=== PATIENT | female | born 1980 | race Caucasian/White ===

== ENCOUNTER → 2018-04-16 | Outpatient (CLI) | payer MEDICAID ==
--- NOTE | 2018-04-16 14:28 | MM ---
Reason for exam: screening (asymptomatic). Baseline mammogram. History: Family history of breast cancer in grandmother at age 58. Physical Findings: Nurse did not find any significant physical abnormalities on exam. MG 3D Screening Mammo W/Cad Bilateral CC and MLO view(s) were taken. The breast tissue is heterogeneously dense. This may lower the sensitivity of mammography. No suspicious abnormality. These results were verbally communicated with the patient and result sheet given to the patient on 04/16/18. ASSESSMENT: Negative, BI-RAD 1 RECOMMENDATION: Routine screening mammogram of both breasts in 1 year.
== END | disposition home or self-care (01) ==
LOC: RADMAMWWP 08:09
PROVIDERS: ATTEND Family Medicine
DX: Z12.31 Encounter for screening mammogram for malignant neoplasm of breast (principal)
CPT/HCPCS: 77063; 77067

== ENCOUNTER → 2018-12-31 | Outpatient (CLI) | payer MEDICAID ==
[2018-12-31 10:29] LABS: HCT 40.1 % (34.0-46.0); HGB 12.8 gm/dL (11.4-16.0); MCH 28.6 pg (25.0-35.0); MCV 89.2 fL (80.0-100.0); Mean Platelet Volume 8.1; Platelet Count 559 k/uL (150-450); RDW 13.3 % (11.5-15.5)
[2018-12-31 17:11] LABS: African American GFR (CKD) 132.1 (60.0-200.0); Albumin 4.3 g/dL (3.80-4.90); Albumin/Globulin Ratio 1.87 (1.60-3.17); Anion Gap 7.6 mmol/L (4.00-12.00); BUN/Creat Ratio 28.33 Ratio (12.00-20.00); Calcium 9.4 mg/dL (8.7-10.3); Carbon Dioxide 24.4 mmol/L (21.6-31.8); Globulin 2.3 g/dL (1.6-3.3); LDL Cholesterol,Calculated 211.8 mg/dL (0.0-131.0); Potassium 4.8 mmol/L (3.5-5.5); Total Bilirubin 0.4 mg/dL (0.2-1.2); Total Protein 6.6 g/dL (6.2-8.2); VLDL Calculation 18.2 mg/dL (5.00-40.00)
[2018-12-31 17:17] LABS: T4, Free (Free Thyroxine) 1.2 ng/dL (0.80-1.80)
== END | disposition home or self-care (01) ==
LOC: LABWHC1 09:22
PROVIDERS: ATTEND Physician Assistant Medical
DX: Z00.00 Encounter for general adult medical examination without abnormal findings (principal); L40.9 Psoriasis, unspecified; E06.3 Autoimmune thyroiditis
CPT/HCPCS: 36415; 80053; 80061; 84439; 84443; 85027

== ENCOUNTER → 2019-08-12 | Outpatient (CLI) | payer MEDICAID ==
--- NOTE | 2019-08-12 09:40 | US ---
EXAMINATION TYPE: US kidneys/renal and bladder DATE OF EXAM: 08/12/2019 COMPARISON: NONE CLINICAL HISTORY: R31.9 hematuria. Hematuria hx of kidney stones. EXAM MEASUREMENTS: Right Kidney: 10.4 x 4.1 x 3.9 cm Left Kidney: 10.6 x 4.3 x 3.8 cm Right Kidney: Multiple calcifications noted no shadowing seen. Mild hydronephrosis seen. Left Kidney: Multiple calcifications noted no shadowing seen. Mild hydronephrosis seen. Bladder: Uterocele visualized going into right ureter. Bilateral Jets seen: Yes. No masses are identified. The urinary bladder is anechoic. Ureterocele is seen within the right late ral urinary bladder. Bilateral ureteral jets are seen. IMPRESSION: Mild bilateral hydronephrosis is seen. Right ureterocele is present. Possible punctate bi lateral renal calculi without shadowing versus prominent renal sinus fat. .
== END ==
LOC: RADUSMAIN 08:41
PROVIDERS: ATTEND Family Medicine
DX: N13.30 Unspecified hydronephrosis (principal); N28.89 Other specified disorders of kidney and ureter
CPT/HCPCS: 76770

== ENCOUNTER → 2019-09-28 | Outpatient (CLI) | payer MEDICAID ==
[2019-09-28 09:13] LABS: African American GFR (CKD) >90 (>60 ml/min/1.73 sqM); Blood Urea Nitrogen 14 mg/dL (7-17); Non-African American GFR(CKD) >90 (>60 ml/min/1.73 sqM)
--- NOTE | 2019-09-28 10:23 | XR ---
EXAMINATION TYPE: XR IVP DATE OF EXAM: 09/28/2019 COMPARISON: Abdominal x-ray February 21, 2012. Most recent renal ultrasound August 12, 2019. HISTORY: Microhematuria and hydronephrosis per order. History of kidney stones with blood in urine pe r patient. TECHNIQUE: Following intravenous administration of 100 cc Isovue-370, multiple spot images are obtain ed. 7 spot images saved to PACS. The preliminary film of the abdomen reveals poor visualization but suspected small bilateral renal ca lculi definitely all measuring under 5 mm standard to lower pole level. I would estimate 3-5 such alexia culi on the right and 2-3 separate calculi on the left. Findings correlate with recent renal ultrasou nd. 2 left pelvic phleboliths are thought present. Following intravenous administration of contrast material, sequential films of the abdomen were obtai susy. There is prompt and symmetrical excretion of the contrast by both kidneys which demonstrate nor mal size and configuration. The collecting systems and visualized portions of the ureters reveal asy mmetric mild right-sided hydronephrosis. There is no mass or obstruction visualized. Distal ureters show focal dilatation herniating into bladder symmetric in appearance, classic Cobra head or spring onion sign. Findings consistent with bilateral adult type ureteroceles. There is gradual accumulation of contrast material in the urinary bladder showing no gross abnormality. The post-voiding film paxton ws minimal residual contrast in the collecting systems and urinary bladder. IMPRESSION: Probable nonobstructing bilateral renal calculi. Mild asymmetric right-sided hydronephros is without obstructing ureter stone. IVP demonstrates bilateral adult type ureteroceles.
== END | disposition home or self-care (01) ==
LOC: RADFLMAIN 08:21
PROVIDERS: ATTEND Urology
DX: N13.30 Unspecified hydronephrosis (principal); N28.89 Other specified disorders of kidney and ureter; R31.1 Benign essential microscopic hematuria
CPT/HCPCS: 82565; 84520; 74400; 36415; Q9967

== ENCOUNTER 2020-09-18 09:56 | Day surgery (SDC) | payer MEDICAID ==
[2020-09-12 15:10] VITALS: BMI 24.2
[~2020-09-18 09:56] MED LIST: LACTATED RINGERS 1,000 ML IV SCH; LIDOCAINE 1% (10MG/ML) FOR IV START INTRADERMA PRN
[2020-09-18] MEDS ORDERED: LACTATED RINGERS 1,000 ML IV ONE (10:12)
[2020-09-18 10:37] VITALS: RESP 16; TEMP 98.1
[2020-09-18] MEDS ORDERED: PROPOFOL 10 MG/ML 20 ML VIAL IV ONE (10:45)
[2020-09-18] MEDS ORDERED: LIDOCAINE 1% INJ 10MG/ML (20 ML MDV) ONE (10:45)
--- NOTE | 2020-09-18 10:52 | P.GSHP ---
History of Present Illness H&P Date: 09/18/20 Chief Complaint: Reflux, bloating Patient here today for upper and lower endoscopy. Patient complaints of mild reflux at times. Some bloating as well. No abdominal pain. Blood work suggested possible celiac disease. No rectal bleeding or melena. Some constipation at times. Past Medical History Past Medical History: Skin Disorder Additional Past Medical History / Comment(s): AUTO IMMUNE DISORDER-PSORIASIS AND PSORIATIC ARTHRITIS. RECENT + CELIAC BLOOD TEST History of Any Multi-Drug Resistant Organisms: None Reported Past Surgical History: Section, Orthopedic Surgery Additional Past Surgical History / Comment(s): LT SHOULDER SX Past Anesthesia/Blood Transfusion Reactions: No Reported Reaction Smoking Status: Never smoker - Past Family History Mother Family Medical History: No Reported History Medications and Allergies Home Medications Medication Instructions Recorded Confirmed Type Fexofenadine HCl [Ana Rosa Allergy] 180 mg PO DAILY 09/12/20 09/18/20 History Multivitamins, Thera [Multivitamin 1 tab PO DAILY 09/12/20 09/18/20 History (formulary)] Allergies Allergy/AdvReac Type Severity Reaction Status Date / Time No Known Allergies Allergy Verified 09/18/20 10:15 Surgical - Exam Vital Signs Temp Pulse Resp BP Pulse Ox 98.1 F 78 16 114/53 100 09/18/20 10:15 09/18/20 10:15 09/18/20 10:15 09/18/20 10:15 09/18/20 10:15 Physical exam: General: Well-developed, well-nourished HEENT: Normocephalic, sclerae nonicteric Abdomen: Nontender, nondistended Extremities: No edema Neuro: Alert and oriented Assessment and Plan (1) GERD (gastroesophageal reflux disease) Narrative/Plan: Will proceed with EGD and biopsy Current Visit: Yes Status: Acute Code(s): K21.9 - GASTRO-ESOPHAGEAL REFLUX DISEASE WITHOUT ESOPHAGITIS SNOMED Code(s): 032817172
--- NOTE | 2020-09-18 10:59 | P.PCN ---
Date of Procedure: 09/18/20 Procedure(s) Performed: Preoperative Dx: GERD, bloating, possible celiac Postoperative Dx: Gastritis, small hiatal hernia Procedure: EGD with Bx Anesthesia: Sedation Endoscopist: Dr. Barry Specimens: Duodenum, antrum Endoscopic Procedure: The patient was on the endoscopy table in the left decubitus position. The Olympus gastroscope was inserted into the oropharynx and passed under direct visualization to the region of the third portion of the duodenum. From that point the scope was slowly withdrawn inspecting all surfaces carefully. There were no neoplastic inflammatory or polypoid lesions throughout the duodenum. Biopsies of the duodenum took place to evaluate for possible celiac disease. The pylorus was widely patent. The stomach was carefully inspected. There was minimal gastritis. A biopsy of the antrum took place to rule out H. pylori. Retroflexion revealed a small sliding hiatal hernia. The esophagus was then carefully examined. There were no neoplastic inflammatory or polypoid lesions throughout the visualized esophagus. The patient was then taken to the recovery room in stable condition per anesthesia guidelines. Recommendations: Await biopsy results.
[2020-09-18 11:15] VITALS: BP 125/70; PULSE 66
== END 2020-09-18 11:38 | disposition home or self-care (01) ==
LOC: ORWHC2ENDO 09:56
PROVIDERS: ATTEND Surgery
DX: K29.50 Unspecified chronic gastritis without bleeding (principal); D72.820 Lymphocytosis (symptomatic); K44.9 Diaphragmatic hernia without obstruction or gangrene; K21.9 Gastro-esophageal reflux disease without esophagitis; L40.9 Psoriasis, unspecified; L40.50 Arthropathic psoriasis, unspecified; Z98.891 History of uterine scar from previous surgery; Z98.890 Other specified postprocedural states; Z79.899 Other long term (current) drug therapy
CPT/HCPCS: 81025; 88305; 43239; J2001; J2704

== ENCOUNTER → 2021-10-04 | Outpatient (CLI) | payer MEDICAID ==
[2021-10-04 14:12] LABS: HCT 37.6 % (37.2-46.3); HGB 11.6 g/dL (12.0-15.0); MCH 27.4 pg (27.0-32.0); MCHC 30.9 g/dL (32.0-37.0); MCV 88.9 fL (80.0-97.0); Mean Platelet Volume 11.5 fL (9.5-12.2); NRBC Per 100 WBC 0 /100 WBCS (0.0-0.0); Platelet Count 577 X 10*3/uL (140-440); RBC 4.23 X 10*6/uL (4.10-5.20); RDW 16.4 % (11.5-14.5); WBC 11.61 X 10*3/uL (4.50-10.00)
[2021-10-04 14:47] LABS: ALT 17 U/L (8-44); AST 20 U/L (13-35); Albumin 4.4 g/dL (3.8-4.9); Albumin/Globulin Ratio 1.83 (1.60-3.17); Alkaline Phosphatase 36 U/L (41-126); BUN/Creat Ratio 17.71 Ratio (12.00-20.00); Blood Urea Nitrogen 12.4 mg/dL (9.0-27.0); Calcium 9.3 mg/dL (8.7-10.3); Carbon Dioxide 24.4 mmol/L (20.0-27.5); Chloride 105 mmol/L (96-109); Chol/HDL Ratio 4.47 Ratio; Globulin 2.4 g/dL (1.6-3.3); Glucose 92 mg/dL (70-110); Non-African American GFR(CKD) 106.1 (60.0-200.0); Potassium 4.3 mmol/L (3.5-5.5); Sodium 138 mmol/L (135-145); Total Protein 6.8 g/dL (6.2-8.2)
== END | disposition home or self-care (01) ==
LOC: LABWHC1 10:15
PROVIDERS: ATTEND Physician Assistant Medical
DX: Z00.00 Encounter for general adult medical examination without abnormal findings (principal); K90.0 Celiac disease; E03.9 Hypothyroidism, unspecified
CPT/HCPCS: 36415; 80053; 80061; 83036; 84439; 84481; 85027

== ENCOUNTER → 2022-01-04 | Outpatient (CLI) | payer MEDICAID ==
--- NOTE | 2022-01-04 07:36 | XR ---
EXAMINATION TYPE: XR KUB DATE OF EXAM: 01/04/2022 HISTORY: Pain Comparison: 09/28/2019 Single KUB is submitted for interpretation. Findings: Right renal calculi: None Visualized. Overlying bowel content limits evaluation. Right ureteral calculi: None Visualized. Overlying bowel content limits evaluation. Left renal calculi: None Visualized. Left ureteral calculi: None Visualized. Pelvic calcifications: 2 stable left-sided pelvic calcifications noted. Rectal debris. Bowel gas pattern is unremarkable. No free air. No mass effects. IMPRESSION: 1. No obvious renal calculi as overlying bowel content does limit evaluation.
== END | disposition home or self-care (01) ==
LOC: RADXRMAIN 07:03
PROVIDERS: ATTEND Urology
DX: N20.0 Calculus of kidney (principal)
CPT/HCPCS: 74018

== ENCOUNTER → 2022-05-09 | Outpatient (CLI) | payer MEDICAID ==
[2022-05-09 22:45] LABS: HCT 40.5 % (37.2-46.3); HGB 12.8 g/dL (12.0-15.0); MCH 27.7 pg (27.0-32.0); MCHC 31.6 g/dL (32.0-37.0); MCV 87.7 fL (80.0-97.0); Mean Platelet Volume 11.5 fL (9.5-12.2); NRBC Per 100 WBC 0 /100 WBCS (0.0-0.0); Platelet Count 618 X 10*3/uL (140-440); RBC 4.62 X 10*6/uL (4.10-5.20); RDW 17.2 % (11.5-14.5); WBC 12.06 X 10*3/uL (4.50-10.00)
[2022-05-09 23:25] LABS: ALT 23 U/L (8-44); AST 21 U/L (13-35); African American GFR (CKD) 122.4 (60.0-200.0); Albumin 4.7 g/dL (3.8-4.9); Alkaline Phosphatase 50 U/L (41-126); BUN/Creat Ratio 19.68 Ratio (12.00-20.00); Blood Urea Nitrogen 13.7 mg/dL (9.0-27.0); Calcium 9.5 mg/dL (8.7-10.3); Chloride 102 mmol/L (96-109); Chol/HDL Ratio 4.68 Ratio; Globulin 2.6 g/dL (1.6-3.3); Glucose 84 mg/dL (70-110); LDL Cholesterol,Calculated 193.1 mg/dL (0.0-131.0); Non-African American GFR(CKD) 105.6 (60.0-200.0); Potassium 4.8 mmol/L (3.5-5.5); Sodium 136 mmol/L (135-145); Total Protein 7.3 g/dL (6.2-8.2)
== END | disposition home or self-care (01) ==
LOC: LABWHC1 14:14
PROVIDERS: ATTEND Family Medicine
DX: K46.9 Unspecified abdominal hernia without obstruction or gangrene (principal)
CPT/HCPCS: 36415; 80053; 80061; 84436; 84443; 84480; 85027

== ENCOUNTER → 2022-10-31 | Outpatient (CLI) | payer MEDICAID ==
[2022-10-31 11:07] LABS: C Reactive Protein <0.30 mg/dL (0.00-0.80); Calcium 9.6 mg/dL (8.7-10.3); Magnesium 1.9 mg/dL (1.5-2.4); Phosphorus 4.3 mg/dL (2.4-5.1)
[2022-10-31 11:17] LABS: Insulin Level 7.3 mIU/mL (3.0-25.0)
[2022-10-31 11:29] LABS: Homocysteine 9.02 umol/L (4.00-14.00)
== END | disposition home or self-care (01) ==
LOC: LABWHC1 06:58
PROVIDERS: ATTEND Family Medicine
DX: K90.0 Celiac disease (principal); R53.83 Other fatigue; E61.9 Deficiency of nutrient element, unspecified
CPT/HCPCS: 36415; 82306; 82310; 82533; 82607; 82627; 83090; 83525; 83735; 84100; 84207; 84439; 84443; 84481; 84550; 84630; 86140

== ENCOUNTER → 2023-07-17 | Outpatient (CLI) | payer MEDICAID ==
[2023-07-17 16:20] LABS: HCT 42.9 % (37.2-46.3); HGB 13.5 g/dL (12.0-15.0); MCH 28.7 pg (27.0-32.0); MCHC 31.5 g/dL (32.0-37.0); MCV 91.3 FL (80.0-97.0); Mean Platelet Volume 11.5 FL (9.5-12.2); NRBC Per 100 WBC 0 X 10*3/uL (0.00-0.01); Platelet Count 630 X 10*3/uL (140-440); RDW 15.5 % (11.5-14.5); WBC 8.47 X 10*3/uL (4.50-10.00)
[2023-07-17 16:52] LABS: Chol/HDL Ratio 4.36 Ratio
[2023-07-17 16:53] LABS: ALT 35 U/L (8-44); AST 27 U/L (13-35); Albumin 4.6 g/dL (3.8-4.9); Albumin/Globulin Ratio 1.64 Ratio (1.60-3.17); Alkaline Phosphatase 46 U/L (41-126); Blood Urea Nitrogen 12.6 mg/dL (9.0-27.0); Carbon Dioxide 25.2 mmol/L (21.6-31.8); Chloride 104 mmol/L (96-109); Globulin 2.8 g/dL (1.6-3.3); Glucose 96 mg/dL (70-110); LDL Cholesterol,Calculated 171.9 mg/dL (0.0-131.0); Potassium 4.8 mmol/L (3.5-5.5); Sodium 140 mmol/L (135-145); Total Bilirubin 0.5 mg/dL (0.3-1.2); Total Protein 7.4 g/dL (6.2-8.2)
== END | disposition home or self-care (01) ==
LOC: LABWHC1 09:34
PROVIDERS: ATTEND Family Medicine
DX: K90.0 Celiac disease (principal); Z79.899 Other long term (current) drug therapy
CPT/HCPCS: 36415; 80053; 80061; 84443; 85027

== ENCOUNTER → 2023-08-07 | Outpatient (CLI) | payer MEDICAID ==
--- NOTE | 2023-08-07 16:17 | MM ---
Reason for Exam: Screening (asymptomatic). Last mammogram was performed 5 year(s) and 3 month(s) ago. Patient History: Menarche at age 10. First Full-Term at age 21. Maternal grandmother had breast cancer, age 58. Last menstrual period: 07/31/2023 Risk Values: Pascale 5 year model risk: 0.7%. NCI Lifetime model risk: 8.6%. Prior Study Comparison: 04/16/2018 Bilateral Screening Mammogram, [facility]. Tissue Density: The breast tissue is heterogeneously dense. This may lower the sensitivity of mammography. Findings: Analyzed By CAD. There is no suspicious group of microcalcifications or new suspicious mass. Overall Assessment: Negative, BI-RAD 1 Management: Screening Mammogram of both breasts in [address] [facility] will attempt to contact patient to return for supplemental views and ultrasound if indicated. Patient should continue monthly self-breast exams. A clinical breast exam by your physician is recommended on an annual basis. This exam should not preclude additional follow-up of suspicious palpable abnormalities. Note on Pascale scores and lifetime risk: 1. A Pascale score greater than 3% is considered moderate risk. If this is the case, consider specialist referral to assess eligibility for a risk reducing agent. 2. If overall lifetime risk for the development of breast cancer is 20% or higher, the patient may qualify for future screening with alternating mammogram and breast MRI. Electronically signed and approved by: Danish Mckeon DO
== END | disposition home or self-care (01) ==
LOC: RADMAMWWP 14:37
PROVIDERS: ATTEND Family Medicine
DX: Z12.31 Encounter for screening mammogram for malignant neoplasm of breast (principal); Z80.3 Family history of malignant neoplasm of breast
CPT/HCPCS: 77063; 77067

== ENCOUNTER → 2023-12-04 | Outpatient (CLI) | payer MEDICAID ==
--- NOTE | 2023-12-04 13:49 | US ---
EXAMINATION TYPE: US kidneys/renal and bladder DATE OF EXAM: 12/04/2023 COMPARISON: XR 01/04/2022 US 08/12/2019 CLINICAL INDICATION: Female, 43 years old with history of N20.0 kidney stone; Gross hematuria with ba ck pain x 1 week resolved with antibiotics. Hx renal stones EXAM MEASUREMENTS: Right Kidney: 11.2 x 5.3 x 5.9 cm Left Kidney: 11.6 x 5.2 x 4.8 cm Post Void Residual Volume: 12 mL Right Kidney: Hydronephrosis Left Kidney: Prominent renal pelvis Bladder: ? Right sided pathology redemonstrated; Stone lodged within left ureter Bilateral Jets seen: ? Yes vs artifact Normal Post Void Residual: Yes There is a curvilinear lucency within the right urinary bladder could represent a ureterocele. A similar finger ureterocele may be present near the midline. This contains a 1.1 cm calcification wi th posterior shadowing. This may account for the left side mild hydronephrosis. Preliminary results were called to the office at the time of imaging. IMPRESSION: 1. Probable Bilateral ureteroceles. A calcification may be within the left ureterocele. CT without co ntrast could further evaluate these findings. 2. Right hydronephrosis and mild left.
== END | disposition home or self-care (01) ==
LOC: RADUSWWP 13:14
PROVIDERS: ATTEND Family Medicine
DX: N20.0 Calculus of kidney (principal); N13.30 Unspecified hydronephrosis
CPT/HCPCS: 76770

== ENCOUNTER → 2023-12-18 | Outpatient (CLI) | payer MEDICAID ==
--- NOTE | 2023-12-18 09:22 | CT ---
EXAMINATION TYPE: CT abdomen pelvis wo con CT DLP: 624 mGycm, Automated exposure control for dose reduction was used. DATE OF EXAM: 12/18/2023 8:22 AM COMPARISON: Ultrasound 12/04/2023 CLINICAL INDICATION:Female, 43 years old with history of Z87.442 PERSONAL HISTORY OF KIDNEY STONES; H x renal stones, hematuria, x 3 months. TECHNIQUE: Axial CT abdomen pelvis wo con;Sagittal and coronal reformats were created on a separate workstation. Contrast used: mL of , (none if empty) Oral contrast used: without Oral Contrast (none if empty) FINDINGS: LOWER CHEST: Unremarkable ABDOMEN LIVER: Unremarkable GALLBLADDER AND BILE DUCTS: Layering increased densities within the lumen consistent with gallstones are present. PANCREAS: Unremarkable. SPLEEN: Unremarkable. ADRENAL GLANDS: Unremarkable. KIDNEYS AND URETERS: No evidence for obstructive uropathy. Right nonobstructing 2 mm calculus. No lef t renal calculi. No ureteral calculi bilaterally. There is a bladder stone versus ureteral fascicular junction calculus measuring 11 x 7 mm. PELVIS BLADDER: Unremarkable REPRODUCTIVE: Unremarkable. ABDOMEN & PELVIS STOMACH AND BOWEL: No evidence of bowel obstruction. The appendix is normal. PERITONEUM/RETROPERITONEUM: No evidence of pneumoperitoneum or free fluid. Magaly mesentery VASCULATURE: No evidence of aortic aneurysm. MUSCULOSKELETAL: No acute osseous abnormalities LYMPH NODES: No gross evidence for lymphadenopathy. SOFT TISSUE/ABDOMINAL WALL: Fat-containing umbilical hernia. IMPRESSION: 1. Left ureterovesicular junction 11 x 7 mm calculus versus bladder stone. Nonobstructing obstructin g right 2 mm calculus. Urologic consultation recommended. 2. Nonspecific Magaly mesentery which may represent sclerosing panniculitis. 3. Cholelithiasis.
== END | disposition home or self-care (01) ==
LOC: RADCTMAIN 07:58
PROVIDERS: ATTEND Family Medicine
DX: N20.1 Calculus of ureter (principal); K80.20 Calculus of gallbladder without cholecystitis without obstruction
CPT/HCPCS: 74176

== ENCOUNTER → 2024-04-01 | Outpatient (CLI) | payer MEDICAID ==
--- NOTE | 2024-04-11 20:25 | CT ---
EXAMINATION TYPE: CT abdomen pelvis wo con DATE OF EXAM: 04/01/2024 COMPARISON: 12/18/2023 INDICATION: Bladder stones DLP: 254.2 mGycm, Automated exposure control for dose reduction was used. CONTRAST: 0 mL of Isovue 300. Study performed without Oral Contrast TECHNIQUE: Axial images were obtained from above the diaphragm to the pubic rami in the axial plane a t 5 mm thick sections. Reconstructed images are reviewed on the computer in the coronal plane. FINDINGS: Limited CT sections are obtained the lung bases. The lung bases are clear. CT ABDOMEN: Some subtle mesenteric increase stranding is within the mid mesentery. No suspicious desiree opathy is evident. Mild inflammatory changes may be present. Liver: Normal Spleen: Absent Pancreas: Normal Adrenal glands: The adrenal glands are normal. Gallbladder: Multiple small layering gallstones are present. Kidneys: No masses are evident. No hydronephrosis is present. No cysts are present. No obstructing renal stones are evident. Nonobstructing 0.2 cm calcifications at the inferior pole right kidney Aorta: Normal Inferior vena cava: Normal. CT PELVIS: Loops of bowel within the abdomen and pelvis are normal. Scattered diverticuli within the sigmoid co kwan. Study is without oral contrast limiting bowel evaluation Appendix: Normal as visualized. Urinary bladder: There is a 1.4 x 1.0 cm calcification in the left urinary bladder. Urinary bladder i s decompressed limiting evaluation. No hydroureter is evident. There are couple of calcifications in the left hemipelvis findings are stable from 12/18/2023 Genitourinary structures: Uterus is prominent. Adnexa are normal. Osseous structures: No suspicious lytic or sclerotic lesions. IMPRESSION: 1. Large urinary bladder calcification. 2. No obstructing renal stones. There is a nonobstructing inferior pole right renal stone. 3. Phleboliths within the pelvis. 4. Diverticulosis without acute diverticulitis. 5. Cholelithiasis. 6. Some subtle inflammatory change may be within the mid mesentery of uncertain etiology, similar to comparison. [facility], , 04/11/2024 8:22 PM
== END | disposition home or self-care (01) ==
LOC: RADCTMAIN 08:02
PROVIDERS: ATTEND Urology
CPT/HCPCS: 74176

== ENCOUNTER → 2024-05-13 | Outpatient (CLI) | payer MEDICAID ==
[2024-05-13 10:28] LABS: Basophils # (A) 0.12 X 10*3/uL (0.00-0.10); Basophils % (A) 1.2 %; Eosinophils # (A) 0.76 X 10*3/uL (0.04-0.35); Eosinophils % (A) 7.8 %; HCT 41.1 % (37.2-46.3); HGB 13.2 g/dL (12.0-15.0); Lymphocytes # (A) 2.73 X 10*3/uL (0.90-5.00); Lymphocytes % (A) 28.1 %; MCH 29.1 pg (27.0-32.0); MCHC 32.1 g/dL (32.0-37.0); MCV 90.7 FL (80.0-97.0); Mean Platelet Volume 11.3 FL (9.5-12.2); Monocytes # (A) 1.04 X 10*3/uL (0.20-1.00); Monocytes % (A) 10.7 %; NRBC Per 100 WBC 0 X 10*3/uL (0.00-0.01); Neutrophils # (A) 5.05 X 10*3/uL (1.80-7.70); Neutrophils % (A) 51.9 %; Platelet Count 580 X 10*3/uL (140-440); RBC 4.53 X 10*6/uL (4.10-5.20); RDW 14.8 % (11.5-14.5); WBC 9.73 X 10*3/uL (4.50-10.00)
[2024-05-13 10:36] LABS: Blood Urea Nitrogen 10.8 mg/dL (9.0-27.0); Calcium 9.9 mg/dL (8.7-10.3); Carbon Dioxide 26.8 mmol/L (21.6-31.8); Chloride 105 mmol/L (96-109); Glucose 99 mg/dL (70-110); Potassium 4.7 mmol/L (3.5-5.5); Sodium 141 mmol/L (135-145)
== END | disposition home or self-care (01) ==
LOC: LABWHC1 07:23
PROVIDERS: ATTEND Urology
DX: Z01.812 Encounter for preprocedural laboratory examination (principal); N20.1 Calculus of ureter; Q62.31 Congenital ureterocele, orthotopic
CPT/HCPCS: 36415; 80048; 85025

== ENCOUNTER 2024-05-19 05:49 | Day surgery (SDC) | payer MEDICAID ==
[~2024-05-19 05:49] MED LIST changes: -LACTATED RINGERS 1,000 ML IV SCH
--- NOTE | 2024-05-19 06:33 | P.GSHP ---
History of Present Illness H&P Date: 05/18/24 Chief Complaint: Left SP discomfort The patient is a 44-year-old white female with known ureteroceles. She has recently experienced left-sided suprapubic discomfort. CT scan shows an 11 x 17 mm calculus at the left ureterovesical junction, within the ureterocele. There is no evidence of hydronephrosis. - Constitutional Constitutional: Denies chills, Denies fever - Gastrointestinal Gastrointestinal: Denies nausea, Denies vomiting - Genitourinary (Female) Genitourinary: Reports hematuria, Denies dysuria Past Medical History Past Medical History: Hyperlipidemia, Skin Disorder, Thyroid Disorder Additional Past Medical History / Comment(s): AUTO IMMUNE DISORDER-PSORIASIS AND PSORIATIC ARTHRITIS, + CELIAC BLOOD TEST, Doyle's thyroiditis, tinnitus, kidney stones, takes spironolactone for acne History of Any Multi-Drug Resistant Organisms: None Reported Past Surgical History: Section, Orthopedic Surgery Additional Past Surgical History / Comment(s): Lt. shoulder arthroplasty, CS x 2 Past Anesthesia/Blood Transfusion Reactions: No Reported Reaction Smoking Status: Never smoker - Past Family History Mother Family Medical History: No Reported History Father Family Medical History: Coronary Artery Disease (CAD) Additional Family Medical History / Comment(s): cardiac stents Medications and Allergies Home Medications Medication Instructions Recorded Confirmed Type Fexofenadine HCl [Ana Rosa Allergy] 180 mg PO DAILY 09/12/20 05/13/24 History Spironolactone 25 mg PO DAILY 05/13/24 05/13/24 History Vit B Complx C/Folic Acid/Zinc 1 each PO DAILY 05/13/24 05/13/24 History [Renaplex Tablet] Allergies Allergy/AdvReac Type Severity Reaction Status Date / Time No Known Allergies Allergy Verified 05/13/24 15:08 Surgical - Exam - General well developed, well nourished, no distress - Respiratory normal respiratory effort - Psychiatric oriented to time, oriented to person, oriented to place, speech is normal, memory intact Results - Imaging Abdominal x-ray: report reviewed, image reviewed CT scan - abdomen: report reviewed, image reviewed Assessment and Plan (1) Calculus of ureter Current Visit: No Status: Acute Code(s): N20.1 - CALCULUS OF URETER SNOMED Code(s): 16490215 (2) Congenital ureterocele, orthotopic Current Visit: Yes Status: Acute Code(s): Q62.31 - CONGENITAL URETEROCELE, ORTHOTOPIC SNOMED Code(s): 54778565735392 Plan: Cystoscopy, bilateral ureterocele incision, left ureteroscopy with Holmium laser lithotripsy and possible stone basketing, possible left ureteral stent insertion. The procedure has been reviewed in detail with the patient. She has been made aware of potential risks, which include anesthesia, bleeding, infecti on, inability to successfully remove the calculus, and scarring.
[2024-05-19] MEDS ORDERED: HYDROmorphone 0.5 MG/0.5 ML SYRINGE IVP PRN (07:00)
[2024-05-19] MEDS: ONDANSETRON 4 MG/2 ML VIAL IVP ONE (07:18)
[2024-05-19] MEDS: DEXAMETHASONE SOD PHOSPHATE 4 MG/ML 1 ML VIAL IV ONE (07:18)
[2024-05-19] MEDS: LACTATED RINGERS 1,000 ML IV SCH (07:18)
--- NOTE | 2024-05-19 07:20 | XR ---
EXAMINATION TYPE: XR KUB DATE OF EXAM: 05/19/2024 6:15 AM COMPARISON: None. CLINICAL INDICATION: Female, 44 years old with history of N20.1 left ureteral calculus / Q62.31 bilat eral ur, TECHNIQUE: XR KUB view(s) obtained. FINDINGS: There is a normal bowel gas pattern. Psoas margins are normal. No organomegaly is present. There is attempted sacralization of L5 on the right. Scoliosis lumbar spine. There is a 0.5 cm calcification at the level of the superior L4 endplate left. This may be a ureteral stone There is a 1.4 centimeter oval calcification in the lower pelvis. This has enlarged from 0.9 cm in . IMPRESSION: 1. Suspected 0.5 cm mid left ureteral stone. 2. Enlarging calcification within the pelvis. [facility], , 05/19/2024 7:18 AM
[2024-05-19] MEDS ORDERED: PROPOFOL 10 MG/ML 20 ML VIAL IV ONE (07:30)
[2024-05-19] MEDS ORDERED: SUCCINYLCHOLINE CHLORIDE 200 MG/10 ML VIAL IV ONE (07:30)
[2024-05-19] MEDS ORDERED: fentaNYL (PF) 50 MCG/ML 2 ML AMP ONE (07:30)
[2024-05-19] MEDS ORDERED: LIDOCAINE 1% INJ 10MG/ML (20 ML MDV) ONE (07:30)
[2024-05-19] MEDS ORDERED: ePHEDrine 50 MG/ML 1 ML VIAL ONE (07:30)
[2024-05-19] MEDS ORDERED: PHENYLEPHRINE-0.9% NACL SYG 1,000 MCG/10 ML SYRINGE ONE (07:30)
[2024-05-19] MEDS ORDERED: MIDAZOLAM 2 MG/2 ML VIAL ONE (07:30)
[2024-05-19] MEDS: IV FLUID CONTINUATION 1,000 ML IV ONE ×2 (07:33→10:38)
[2024-05-19 09:00] VITALS: TEMP 97.6
--- NOTE | 2024-05-19 09:04 | FL ---
EXAMINATION TYPE: FL guidance operating room DATE OF EXAM: 05/19/2024 HISTORY: Fluoroscopy time Total dose area product (DAP) in uGy*m?, mGy*cm? (or similar): 0.39379 IMPRESSION: 1. Fluoroscopy time. [facility], , 05/19/2024 9:02 AM
[2024-05-19] MEDS: droPERidol 5 MG/2 ML VIAL IVP PRN (09:28)
[2024-05-19] MEDS: MEPERIDINE 50 MG/ML SYRINGE IVP STA (10:03)
[2024-05-19] MEDS: SCOPOLAMINE 1 MG/72 HR PATCH TRANSDERM STA (11:20)
[2024-05-19 11:25] VITALS: BP 116/72; PULSE 93; RESP 16
--- NOTE | 2024-05-19 12:46 | P.OP ---
Date of Procedure: 05/19/24 Preoperative Diagnosis: Bilateral orthotopic ureterocele, left ureteral calculus Postoperative Diagnosis: Same Procedure(s) Performed: Cystoscopy, incision/resection of bilateral ureteroceles, cystolithotripsy, bilateral ureteral stent insertion Anesthesia: MIGUELITOA Surgeon: Zaid Wills Estimated Blood Loss (ml): 5 IV fluids (ml): 700 Condition: stable Disposition: PACU Indications for Procedure: The patient is a 44-year-old white female with known ureteroceles. She has recently experienced left-sided suprapubic discomfort. CT scan shows an 11 x 17 mm calculus at the left ureterovesical junction, within the ureterocele. There is no evidence of hydronephrosis. She now comes for incision/resection of the ureteroceles with removal of the left ureteral calculus. Operative Findings: Bilateral orthotopic ureterocele. Large calculus within left ureterocele, successfully removed. Description of Procedure: The patient was taken to the operating room and placed in the dorsolithotomy position, with her legs supported in Carlos stirrups. The external genitalia was prepped draped sterilely. The 30 degree lens was used to introduce the 20 Libyan Olympus cystoscope into the bladder. The bladder was inspected. Bilateral orthotopic ureteroceles were noted. The right ureterocele was the larger of the 2, and ballooned with peristalsis of urine. The left ureterocele was smaller and more static. The ureteral orifice ease were small. Edema surrounded the left ureteral orifice. The [employer] resectoscope was introduced into the bladder. A Dominguez knife was used to incise the right ureterocele. However, it did not cut cleanly, rather cauterizing. Therefore, the [employer] resectoscope was introduced into the bladder, and the bipolar loop electrode was used to resect the roof of the ureterocele. This exposed the right ureteral orifice, which of course was enlarged. The same was then performed on the left side. After resecting the roof of the left ureterocele, it was possible to manipulate the calculus out of the ureterocele and into the bladder. The resectoscope was then removed, and the cystoscope was replaced into the bladder. The 550 m holmium laser probe was then used to perform lithotripsy. After fragmenting the calculus, the calculus fragments were removed from the bladder and sent for chemical analysis. Once again, the left ureteral orifice was enlarged. Hemostasis was excellent. 22 cm, 6 Libyan double-J ureteral stents were then placed bilaterally in the standard fashion over a 0.035 inch Glidewire. Proper stent positioning was verified fluoroscopically and endoscopically. The bladder was emptied and the cystoscope removed. The patient tolerated the procedure well and was taken to the recovery in stable condition.
== END 2024-05-19 11:54 | disposition home or self-care (01) ==
LOC: OR 05:49
PROVIDERS: ATTEND Urology
DX: N20.1 Calculus of ureter (principal); Q62.31 Congenital ureterocele, orthotopic; N28.89 Other specified disorders of kidney and ureter; E07.9 Disorder of thyroid, unspecified; E78.5 Hyperlipidemia, unspecified; L40.50 Arthropathic psoriasis, unspecified; Z79.899 Other long term (current) drug therapy
CPT/HCPCS: 82365; 74018; 52332; J1100; J2175; J0690; J2405; J1790; 81025; 88305

== ENCOUNTER → 2024-06-24 | Outpatient (CLI) | payer MEDICAID ==
--- NOTE | 2024-06-24 10:32 | US ---
EXAMINATION TYPE: US kidneys/renal and bladder DATE OF EXAM: 06/24/2024 COMPARISON: 12/04/23, CT: 04/01/24 CLINICAL INDICATION: Female, 44 years old with history of N20.1 CALCULUS OF URETER; hx of bladder sto ne. Hx of uterocele. Pt states she had surgery to remove the stone and uterocele in May 2024. TECHNIQUE: Grayscale imaging of the bilateral kidneys and urinary bladder: FINDINGS: EXAM MEASUREMENTS: Right Kidney: 11.1 x 5.4 x 4.3 cm Left Kidney: 11.5 x 4.8 x 5.2 cm Right Kidney: No hydronephrosis or masses seen Left Kidney: dilated renal pelvis Bladder: wnl Bilateral Jets seen: yes There is no evidence for hydronephrosis at this point in time. No nephrolithiasis is seen. No tamra s are identified. The urinary bladder is anechoic. IMPRESSION: No evidence for obstructive uropathy. [facility], , 06/24/2024 10:30 AM
== END | disposition home or self-care (01) ==
LOC: RADUSWWP 09:53
PROVIDERS: ATTEND Urology
DX: N20.1 Calculus of ureter (principal); Z87.442 Personal history of urinary calculi
CPT/HCPCS: 76770

== ENCOUNTER → 2025-01-19 | Outpatient (CLI) | payer MEDICAID ==
[2025-01-19 09:57] LABS: Bacteria,Urine Many /hpf; Bilirubin,Urine Negative (Negative); Blood,Urine Negative (Negative); Color,Urine Yellow; Glucose,Urine (UA) Negative (Negative); Ketones,Urine Negative (Negative); Leukocyte Esterase,Urine Large (Negative); Mucus,Urine Many /hpf; Nitrite,Urine Negative (Negative); PH, Urine 6.5 (5.0-8.0); Protein,Urine Trace (Negative); RBC,Urine 6 /hpf (0-5); Specific Gravity,Urine 1.024 (1.001-1.035); Squamous Epithelial Cell,Urine 5 /hpf (0-4); Urobilinogen,Urine <2.0 mg/dL (<2.0); WBC,Urine 120 /hpf (0-5)
--- NOTE | 2025-01-19 10:36 | MM ---
Reason for Exam: Screening (asymptomatic). Last mammogram was performed 1 year(s) and 6 month(s) ago. Patient History: Menarche at age 10. First Full-Term at age 21. Patient used Hormonal Contraceptives for 2 years. Maternal grandmother had breast cancer, age 58. Last menstrual period: 12/25/2024 Risk Values: Pascale 5 year model risk: 0.8%. NCI Lifetime model risk: 8.4%. Prior Study Comparison: 04/16/2018 Bilateral Screening Mammogram, [facility]. 08/07/2023 Bilateral MG 3D screening mammo w/cad, [facility]. Tissue Density: The breasts are heterogeneously dense, which may obscure small masses. Findings: Analyzed By CAD. There is no suspicious group of microcalcifications or new suspicious mass in either breast. Overall Assessment: Negative, BI-RAD 1 Management: Screening Mammogram of both breasts in 1 year. Some Advise bilateral breast ultrasound surveillance in patients with background dense tissue. Patient should continue monthly self-breast exams. A clinical breast exam by your physician is recommended on an annual basis. This exam should not preclude additional follow-up of suspicious palpable abnormalities. Note on Pascale scores and lifetime risk: 1. A Pascale score greater than 3% is considered moderate risk. If this is the case, consider specialist referral to assess eligibility for a risk reducing agent. 2. If overall lifetime risk for the development of breast cancer is 20% or higher, the patient may qualify for future screening with alternating mammogram and breast MRI. [facility], , 01/19/2025 9:56 AM. Electronically signed and approved by: Denzel Francis M.D.
[2025-01-19 15:25] LABS: HCT 41.6 % (37.2-46.3); HGB 12.9 g/dL (12.0-15.0); MCH 27.7 pg (27.0-32.0); MCHC 31.0 g/dL (32.0-37.0); MCV 89.3 FL (80.0-97.0); NRBC Per 100 WBC 0 X 10*3/uL (0.00-0.01); Platelet Count 620 X 10*3/uL (140-440); RBC 4.66 X 10*6/uL (4.10-5.20); RDW 15.2 % (11.5-14.5); WBC 8.32 X 10*3/uL (4.50-10.00)
[2025-01-19 15:38] LABS: Cholesterol 219.00 mg/dL (0.00-200.00); HDL Cholesterol 52.60 mg/dL (40.00-60.00); LDL Cholesterol,Calculated 153.9 mg/dL (0.0-131.0); T4, Free (Free Thyroxine) 1.73 ng/dL (0.80-1.80); Triglycerides 62.30 mg/dL (0.00-149.00); VLDL Calculation 12.46 mg/dL (5.00-40.00)
[2025-01-19 15:43] LABS: Blood Urea Nitrogen 10.8 mg/dL (9.0-27.0); Glucose 108 mg/dL (70-110)
[2025-01-19 15:44] LABS: ALT 36 U/L (8-44); AST 35 U/L (13-35); Albumin 4.3 g/dL (3.8-4.9); Albumin/Globulin Ratio 1.59 Ratio (1.60-3.17); Alkaline Phosphatase 51 U/L (41-126); Anion Gap 10.30 mmol/L (4.00-12.00); BUN/Creat Ratio 18.00 Ratio (12.00-20.00); Calcium 9.4 mg/dL (8.7-10.3); Carbon Dioxide 23.7 mmol/L (21.6-31.8); Chloride 106 mmol/L (96-109); Globulin 2.7 g/dL (1.6-3.3); Potassium 4.8 mmol/L (3.5-5.5); Sodium 140 mmol/L (135-145); Total Protein 7.0 g/dL (6.2-8.2)
== END | disposition home or self-care (01) ==
LOC: RADMAMWWP 08:06
PROVIDERS: ATTEND Family Medicine
DX: Z12.31 Encounter for screening mammogram for malignant neoplasm of breast (principal); R92.333 Mammographic heterogeneous density, bilateral breasts; N20.0 Calculus of kidney; K90.0 Celiac disease; Z80.3 Family history of malignant neoplasm of breast; Z92.0 Personal history of contraception
CPT/HCPCS: 77063; 77067; 80053; 80061; 81001; 83036; 84439; 84443; 84481; 85027; 87086